=== PATIENT | female | born 1985 | race Caucasian/White ===

== ENCOUNTER → 2018-05-04 18:04 | Observation (INO) ==
[2018-05-04 17:14] LABS: Bilirubin,Urine Negative (Negative); Blood,Urine Negative (Negative); Clarity,Urine Clear (Clear); Color,Urine Yellow (Yellow); Glucose,Urine (UA) Normal (Normal); Ketones,Urine Negative (Negative); Leukocyte Esterase,Urine Trace (Negative); Nitrite,Urine Negative (Negative); PH,Urine 7.5 pH Units (5.0-8.0); Protein,Urine Negative (Neg-Trace); Specific Gravity,Urine 1.017 (1.010-1.025); Urobilinogen,Urine Normal (Normal)
[2018-05-04 17:17] LABS: Bacteria,Urine Few per hpf (None-Few); Hyaline Casts,Urine None Seen per lpf (None-Few); RBC,Urine 0-3 per hpf (0-3); Squamous Epithelial Cell,Urine Many per lpf (None-Few)
[2018-05-04 17:22] LABS: Amphetamine Screen,Urine Negative ng/mL (Cutoff=1000); Barbiturate Screen,Urine Negative ng/mL (Cutoff=200); Benzodiazepines Screen,Urine Negative ng/mL (Cutoff=200); Cannabinoid Screen,Urine Positive ng/mL (Cutoff = 50); Cocaine Screen,Urine Negative ng/mL (Cutoff= 300); Opiate Screen,Urine Negative ng/mL (Cutoff=300); Phencyclidine Screen,Urine Negative ng/mL (Cutoff=25)
[2018-05-04 17:44] LABS: Candida DNA Not Detected (Not Detect); Gardnerella DNA Not Detected (Not Detect); Trichomonas DNA Not Detected (Not Detect)
--- NOTE | 2018-05-04 17:54 | Discharge Summary ---
Date of Encounter: 05/04/18 Time of Encounter: 17:53 - Discharge Diagnosis (1) 37 weeks gestation of Priority: Primary Status: Acute Comments: Follow-up with Dr. Kent on Friday as scheduled Labor parameters discussed Discharge home (2) Vaginal discharge during in third trimester Priority: Secondary Status: Acute Comments: Vaginosis panel negative Urinalysis negative - Discharge Medications Home Medications: Prenata Chewable Tablet 1 tab PO DAILY 05/04/18 [History] Allergies/Adverse Reactions: Allergy/AdvReac Type Severity Reaction Status Date / Time Sulfa (Sulfonamide Allergy Mild Rash Verified 02/20/15 08:43 Antibiotics) Data Procedures and tests throughout hospitalization: Laboratory Tests 05/04/18 05/04/18 05/04/18 16:32 16:45 16:45 Urine Color Yellow Urine Clarity Clear Urine pH 7.5 Ur Specific [place] 1.017 Urine Protein Negative Urine Glucose (UA) Normal Urine Ketones Negative Urine Blood Negative Urine Nitrite Negative Urine Bilirubin Negative Urine Urobilinogen Normal Ur Leukocyte Esterase Trace H Urine Microscopic RBC 0-3 Urine Microscopic WBC 3-5 H Ur Squamous Epith Cells Many H Urine Bacteria Few Hyaline Casts None Seen Ur Culture Indicated? NO. A Urine Opiates Screen Negative Ur Barbiturates Screen Negative Ur Phencyclidine Scrn Negative Ur Amphetamines Screen Negative U Benzodiazepines Scrn Negative Urine Cocaine Screen Negative U Marijuana (THC) Screen Positive H Ur Drug Screen Interp See Below Kayla species DNA Not Detected Gardnerella DNA Probe Not Detected Trichomonas DNA Probe Not Detected Labs on day of discharge: Labs from last 24 hours 05/04/18 05/04/18 05/04/18 16:45 16:45 16:32 Urine Color Yellow Urine Clarity Clear Urine pH 7.5 Ur Specific [place] 1.017 Urine Protein Negative Urine Glucose (UA) Normal Urine Ketones Negative Urine Blood Negative Urine Nitrite Negative Urine Bilirubin Negative Urine Urobilinogen Normal Ur Leukocyte Esterase Trace H Urine Microscopic RBC 0-3 Urine Microscopic WBC 3-5 H Ur Squamous Epith Cells Many H Urine Bacteria Few Hyaline Casts None Seen Ur Culture Indicated? NO. A Urine Opiates Screen Negative Ur Barbiturates Screen Negative Ur Phencyclidine Scrn Negative Ur Amphetamines Screen Negative U Benzodiazepines Scrn Negative Urine Cocaine Screen Negative U Marijuana (THC) Screen Positive H Ur Drug Screen Interp See Below Kayla species DNA Not Detected Gardnerella DNA Probe Not Detected Trichomonas DNA Probe Not Detected Date of admission: 05/04/18 15:50 Primary care physician: Kylie Berkowitz CNP Discharging clinician: Karly Baugh Anticipated date of discharge: 05/04/18 - Patient Status Disposition: Home, Self-Care Condition: Good Functional capacity at discharge: independent ambulation Overall status at discharge: patient is progressing back to baseline - Discharge Instructions Follow Up With: Kylie Berkowitz CNP [Primary Care Provider] - Renetta Kent DO [Partnered Physician] - - Diet and Activity Activity: increase activity as tolerated Diet: regular diet Hospital Course [facility] Reason for admission: other Discharge diagnosis: other Hospital course: presents with a 2 day history of vaginal discharge and slight cramping. She endorses good movement and denies vaginal bleeding and contractions. Vaginosis panel negative. Urinalysis negative. Follow-up with Dr. Kent as scheduled and discharge home. Time Attestation: Total time spent providing and/or coordinating discharge services: Time Spent: Less than 30 minutes Exam - Constitutional General appearance IM: A&O X 3 - Respiratory Respiratory exam: Present: CTAB - Cardiovascular Cardiovascular exam IM: Present: RRR, +S1, +S2 - GI/Abdominal GI/Abdominal exam IM: normal bowel sounds, no peritoneal signs - Rectal Rectal exam: deferred - Uterine Tone: Firm - Extremities Exam Extremities exam IM: Present: normal capillary refill, normal inspection, radial pulses palpable and symmetrical - Neurological Exam Neurological exam: alert, CN II-XII intact, motor sensory deficit, normal gait, oriented X3, reflexes normal, no focal deficits, strengths equal and symetr throughout - VTE Reasons for not Prescribing Prophylaxis: Treatment not Indicated - Low risk for VTE
== END | disposition home or self-care (01) ==
LOC: 1NENULAB
PROVIDERS: ADMIT Advanced Practice Midwife; ATTEND Advanced Practice Midwife

== ENCOUNTER 2018-05-07 05:51 | Inpatient (IN) ==
[~2018-05-07 05:51] MED LIST: Famotidine 20 MG/2 ML VIAL IVP PRN; Lidocaine 1% 20 ML MDV INFILT PRN; Metoclopramide 10 MG/2 ML VIAL IVP PRN; Ringers Solution, Lactated 1,000 ML IVC SCH; Ringers Solution, Lactated 1,000 ML ONE
[2018-05-07 05:56] LABS: Basophils # 0.1 K/mcL (0.0-0.2); Basophils % 0.5 %; Eosinophils # 0.1 K/mcL (0.0-0.6); Eosinophils % 0.5 %; Hematocrit 34.7 % (35.3-44.9); Hemoglobin 11.6 g/dL (11.5-15.4); Lymphocytes # 2.2 K/mcL (0.6-4.6); Mean Corpuscular HGB Conc 33.4 g/dL (31.6-35.5); Mean Corpuscular Hemoglobin 30.6 pg (28.0-33.3); Mean Corpuscular Volume 91.6 fL (83.0-100.0); Mean Platelet Volume 10.3 fL (9.4-12.4); Monocytes # 0.7 K/mcL (0.0-1.3); Monocytes % 5.5 %; Neutrophils # 9.2 K/mcL (1.6-8.9); Platelet Count 255 K/mcL (140-400); Red Blood Count 3.79 M/mcL (3.82-4.97); Red Cell Distribution Width 12.5 % (11.5-14.5); Segmented Neutrophils % 74.5 %
[2018-05-07] MEDS ORDERED: Bupivacaine-MPF 0.25% 10 ML VIAL ONE (06:03)
--- NOTE | 2018-05-07 06:03 | OB/GYN History & Physical ---
Date of Encounter: 05/07/18 Time of Encounter: 05:54 History of Present Illness Chief complaint: Labor evaluation at 38 weeks. HPI: Ms. Kamara is a 32 year old female 013 38 weeks 2 days gestation. She is a patient of Dr. Kent. She arrives complaining of contractions that started 5:30 yesterday evening. She reports decreased movement today, denies leakage of fluid, and states she has lost her mucous plug. Per nurse exam patient is 7 cm on arrival to labor and delivery. Patient requests an epidural for pain management. Blood type O- GBS negative T Pall negative Rubella immune Varicella immune HBsAg not drawn was labs. Will draw this today with admission labs. Past Med Surg Social Fam HX - Past Medical History Medical history: other (graves) Additional medical history: VAG DELIVERY: 2006, 2010, POSSIBLE DWARFISM WITH THIS -STATES TO BE TESTED AFTER DELIVERY. STATES THAT LIMBS ARE VERY SMALL AND THAT IS WHY DWARFISM IS SUSPECTED. Psychiatric history: no psych history - Past Surgical History Surgical History: no surgical history - Social History Smoking Status: Current every day smoker Smokeless Tobacco Status: No Alcohol use: none Drug use: none - Family History Mother Adopted: No Family Member Ethnicity: Non- Living Status: Still Living Hx Family Cardiac Disorders: No Hx Family Respiratory Disorders: No Hx Family Cancer: No Hx Family Endocrine Disorder: No Hx Family Neuromuscular Disorders: No Hx Family Neurologic Disorders: No Hx Family HEENT Disorders: No Hx Family Autoimmune Disorders: No Obstetrical History - Pregnancies : 5 Para: 3 Term: 3 : 0 Ab's: 1 Livin Medications and Allergies Prenata Chewable Tablet 1 tab PO DAILY 05/04/18 [History] Allergy/AdvReac Type Severity Reaction Status Date / Time Sulfa (Sulfonamide Allergy Mild Rash Verified 02/20/15 08:43 Antibiotics) Exam - Constitutional Constitutional: well developed, moderate distress Results All other labs normal. - VTE Reasons for not Prescribing Prophylaxis: Treatment not Indicated - Low risk for VTE
[2018-05-07] MEDS ORDERED: Lidocaine -MPF 2% 5 ML VIAL ONE (06:05)
--- NOTE | 2018-05-07 06:49 | OB/GYN Procedure Note ---
Delivery - Delivery Date: 05/07/18 Provider: Mihaela Guidry (Pavithra Ortega CN) Intrapartum events: precipitous labor- <3hr Delivery induction: none Delivery monitor: external FHT Anesthesia: local Quantitated Blood Loss: 100 - (s) Infant A Infant Delivery Date: 05/07/18 Infant Delivery Time: 06:20 Presentation: vertex Position: OP Route of delivery: vacuum extraction Gender: Male Viability: Viable Pounds: 6 Ounces: 10 Weight Gram: 3 kg at 1 minute: 8 at 5 mins: 10 Shoulder Dystocia: not encountered Specimens collected: cord blood Placenta: spontaneous Cord: nuchal cord, 3 umbilical vessels, delivered through nuchal - Repair Episiotomy: none Laceration Description: Perineal - 2nd Degree - Complications Delivery complications: none Delivery comments: The patient was complete and pushing with bradycardia into the 60s with poor maternal effort. The patient was offered a vacuum delivery. The Kiwi vacuum placed on the vertex at +3 position. With one contraction and aggressive pushing at 450 mmHg and no pop offs there was a successful vaginal delivery in OP position of a vigorous male infant weighing 6 lbs. 10 oz. with Apgars of 8 at 1 minute and 10 at 5 minutes. The cord was clamped and cut after delay and handed to the nursery care team. Placenta was delivered spontaneous and intact. No cervical or vaginal lacerations noted. Second-degree perineal laceration was repaired with 3-0 Monocryl in the usual fashion using 10 mL of 1% lidocaine with epinephrine. Estimated blood loss 100 mL's. Complications none - Disposition Mom disposition: stable in LDR [place] disposition: stable in LDR
[2018-05-07 06:57] LABS: Amphetamine Screen,Urine Negative ng/mL (Cutoff=1000); Barbiturate Screen,Urine Negative ng/mL (Cutoff=200)
[2018-05-07 06:58] LABS: Benzodiazepines Screen,Urine Negative ng/mL (Cutoff=300); Cannabinoid Screen,Urine Positive ng/mL (Cutoff = 50); Cocaine Screen,Urine Negative ng/mL (Cutoff= 300); Opiate Screen,Urine Negative ng/mL (Cutoff=300); Phencyclidine Screen,Urine Negative ng/mL (Cutoff=25)
[2018-05-07] MEDS ORDERED: Acetaminophen 325 MG TABLET PO PRN (07:45)
[2018-05-07] MEDS ORDERED: Oxytocin 20 units/ LR 1000 mL 20 UNIT/1,000 ML BAG IVC SCH (07:45)
[2018-05-07] MEDS ORDERED: Lidocaine/EPI 1:100k 1% 30 ML VIAL INFILT ONE ×2 (07:45→12:47)
[2018-05-07] MEDS ORDERED: Benzocaine/Menthol 56 GM AEROSOL SPRAY TP PRN (07:45)
[2018-05-07] MEDS ORDERED: Rho Immune Globulin 1,500 UNIT SYRINGE IM PRN (07:45)
[2018-05-07] MEDS: Ibuprofen 600 MG TABLET PO SCH ×3 (08:05→21:36)
[2018-05-07] MEDS ORDERED: Prenatal Vit/FA 1 EACH TABLET PO SCH (09:00)
[2018-05-07] MEDS ORDERED: Methylergonovine 0.2 MG/ML AMPUL IM ONE ×2 (11:27)
[2018-05-07] MEDS ORDERED: Ringers Solution, Lactated 1,000 ML ONE ×2 (12:52→16:54)
--- NOTE | 2018-05-07 12:56 | Event Note ---
Date of Encounter: 05/07/18 Time of Encounter: 12:52 Called to patient room by nursing staff to assess large amount of vaginal bleeding at roughly 6 hours . Upon entering room, patient has significant amount of bleeding on chux and pad (roughly 450 mL) with continuous flow of bleeding. Methergine was given within the past 45 minutes for previous gushing without resolve. Patient c/o uterine cramping. Fundus firm at at U. Upon speculum exam, right vaginal wall hemotoma noted with active bleeding from repair site from this morning's delivery. Pressure placed on vaginal wall and Dr Wheatley called to room. Dr Wheatley assumed care at this point.
[2018-05-07 13:00] LABS: Basophils # 0.1 K/mcL (0.0-0.2); Basophils % 0.3 %; Hemoglobin 10.7 g/dL (11.5-15.4); Immature Granulocytes % 1.1 % (0-4); Lymphocytes # 1.8 K/mcL (0.6-4.6); Lymphocytes % 12.3 %; Mean Corpuscular HGB Conc 33.4 g/dL (31.6-35.5); Mean Corpuscular Hemoglobin 30.2 pg (28.0-33.3); Mean Corpuscular Volume 90.4 fL (83.0-100.0); Mean Platelet Volume 10.3 fL (9.4-12.4); Monocytes # 0.6 K/mcL (0.0-1.3); Monocytes % 3.9 %; Neutrophils # 12.2 K/mcL (1.6-8.9); Platelet Count 269 K/mcL (140-400); Red Blood Count 3.54 M/mcL (3.82-4.97); Red Cell Distribution Width 12.3 % (11.5-14.5); Segmented Neutrophils % 82.4 %
[2018-05-07 13:09] LABS: INR 0.9; Prothrombin Time 10.6 Seconds (9.4-12.1)
[2018-05-07 13:12] LABS: Activated Partial Thrombo Time 28.8 Seconds (26.0-36.0)
[2018-05-07] MEDS ORDERED: *HR* HYDROcodone/Acet 5/325 mg TABLET PO PRN (16:18)
--- NOTE | 2018-05-07 16:49 | Event Note ---
Date of Encounter: 05/07/18 Time of Encounter: 16:12 I was called in to the room to evaluate the patient's bleeding. I observed that she had bled about 800c on the paddings and the bed. This was bleeding mixed with clots. I examined her vagina and noted a large right vaginal hematoma. It was bleeding significantly. I evacuated the clots in the vagina and noted a deep vaginal sulcus laceration. I packed her vagina with vag packing, rosa labs- CBC, coags. Fluids started and I prepared her for the OR to surgically repair the laceration. I placed the patient in stirrups and with multiple 3-0 vicryl sutures, I repaired the laceration. I placed Carmen on the surgical bed and packed her vagina. I will place her on antibiotics (Zosyn) and remove the packing in the AM.
[2018-05-07] MEDS: Piperacillin/Tazobactam 3.375 GM in 0.9 % Sodium Chloride Mini Bag 100 ML IVPB SCH (17:07)
[2018-05-07 18:15] LABS: Basophils % 0.2 %; Eosinophils % 0.1 %; Hematocrit 25.2 % (35.3-44.9); Hemoglobin 8.5 g/dL (11.5-15.4); Immature Granulocytes % 0.9 % (0-4); Lymphocytes # 2.2 K/mcL (0.6-4.6); Lymphocytes % 16.8 %; Mean Corpuscular HGB Conc 33.7 g/dL (31.6-35.5); Mean Corpuscular Hemoglobin 30.8 pg (28.0-33.3); Mean Corpuscular Volume 91.3 fL (83.0-100.0); Mean Platelet Volume 10.5 fL (9.4-12.4); Monocytes # 0.6 K/mcL (0.0-1.3); Monocytes % 4.7 %; Neutrophils # 9.9 K/mcL (1.6-8.9); Platelet Count 221 K/mcL (140-400); Red Blood Count 2.76 M/mcL (3.82-4.97); Red Cell Distribution Width 12.4 % (11.5-14.5); Segmented Neutrophils % 77.3 %
[2018-05-08] MEDS: Piperacillin/Tazobactam 3.375 GM in 0.9 % Sodium Chloride Mini Bag 100 ML IVPB SCH ×2 (04:17→11:27)
[2018-05-08] MEDS: Ibuprofen 600 MG TABLET PO SCH ×2 (04:17→11:02)
[2018-05-08 05:48] LABS: Basophils # 0.1 K/mcL (0.0-0.2); Basophils % 0.5 %; Eosinophils # 0.1 K/mcL (0.0-0.6); Eosinophils % 0.5 %; Hematocrit 22.3 % (35.3-44.9); Hemoglobin 7.5 g/dL (11.5-15.4); Immature Platelets 4.4 % (1.1-6.1); Lymphocytes # 2.6 K/mcL (0.6-4.6); Lymphocytes % 23.9 %; Mean Corpuscular HGB Conc 33.6 g/dL (31.6-35.5); Mean Corpuscular Hemoglobin 30.7 pg (28.0-33.3); Mean Corpuscular Volume 91.4 fL (83.0-100.0); Mean Platelet Volume 10.8 fL (9.4-12.4); Monocytes # 0.6 K/mcL (0.0-1.3); Monocytes % 5.7 %; Neutrophils # 7.5 K/mcL (1.6-8.9); Platelet Count 194 K/mcL (140-400); Red Blood Count 2.44 M/mcL (3.82-4.97); Red Cell Distribution Width 12.7 % (11.5-14.5); Segmented Neutrophils % 68.4 %
--- NOTE | 2018-05-08 08:10 | OB/GYN Progress Note ---
Date of Encounter: 05/08/18 Time of Encounter: 08:08 - Assessment and Plan (1) Status post vaginal delivery Current Visit: Yes Status: Acute (2) hemorrhage Current Visit: Yes Status: Acute Qualifiers: hemorrhage type: secondary hemorrhage Qualified Code(s): O72.2 - Delayed and secondary hemorrhage (3) Vaginal vault hematoma Current Visit: Yes Status: Acute (4) Blood loss anemia Current Visit: Yes Status: Acute We will repeat CBC and approximate 6 hours from last one in stable and asymptomatic we will discuss possible discharge Subjective - Subjective Interval history: Patient's doing well this morning just very sore. She denies any lightheadedness dizziness when up and ambulating. She has not been up much because of the discomfort. Patient states that she has been having some bleeding but it is been light but she does have packing inside the vagina at this time. Hemoglobin is down to 7.4 did recommend repeating it in approximately 6 hours to make sure it stable. Patient is asymptomatic not lightheaded dizzy hemoglobin is stable later today and is wanting to go home did discuss possible discharge. Patient reports: appetite normal, voiding normally, pain well controlled, ambulating normally : doing well Objective - Latest Vital Signs Latest vital signs: Vital Signs Temp Pulse Resp BP Pulse Ox 05/08/18 04:10 97.9 F 83 14 97/58 99 05/07/18 20:10 98.0 F 75 14 104/66 98 05/07/18 17:10 97.7 F 96 16 97/64 96 05/07/18 17:06 97.7 F 96 14 97/64 96 05/07/18 15:45 98.3 F 89 16 114/73 100 05/07/18 15:20 97.7 F 84 16 103/78 100 05/07/18 14:52 97.7 F 69 16 112/79 99 05/07/18 14:16 97.6 F 73 16 116/94 98 05/07/18 13:53 97.7 F 88 16 116/94 98 05/07/18 13:42 80 16 120/62 98 05/07/18 13:35 96 16 110/65 97 05/07/18 13:20 93 20 119/68 97 05/07/18 13:08 79 16 122/72 97 05/07/18 13:03 87 18 112/74 97 05/07/18 12:59 128 18 114/77 98 05/07/18 12:55 104/62 05/07/18 11:20 98 F 60 16 117/87 98 05/07/18 11:15 98 F 60 12 117/87 98 05/07/18 10:15 97.7 F 78 16 114/71 100 05/07/18 09:15 98.5 F 79 12 115/61 98 Intake and Output 05/07/18 05/08/18 05/08/18 23:59 07:59 15:59 Intake Total 400 / 400 500 / 500 Output Total 300 / 300 400 / 400 Balance 100 / 100 100 / 100 Intake: IV Fluids 100 / 100 Zosyn 3.375 GM In 0.9 % Sodium 100 / 100 Chloride (Mini-Bag +) 100 ML @ 25 mls/hr IVPB Q8H [facility] Rx#: [id number] Oral 300 / 300 500 / 500 Output: Urine 300 / 300 400 / 400 Other: # Voids 1 Weight 67.585 kg Patient Weight 05/08/18 23:59 Weight 67.585 kg - Exam Chest: Normal S1, Normal S2 Extremities: Present: normal Abdomen: Present: normal appearance Uterus Position: 1 Finger Below Umbilicus Comments: One lap sponge removed from vagina bloodsoaked but no active bleeding noted after the removal noted after the removal. - Labs Labs: Laboratory Results - last 24 hr 05/07/18 05/07/18 05/07/18 07:03 12:40 12:40 WBC 14.9 H RBC 3.54 L Hgb 10.7 L Hct 32.0 L MCV 90.4 MCH 30.2 MCHC 33.4 RDW 12.3 Plt Count 269 MPV 10.3 Immature Gran % 1.1 Seg Neutrophils % 82.4 Lymphocytes % 12.3 Monocytes % 3.9 Eosinophils % 0.0 Basophils % 0.3 Neutrophils # 12.2 H Lymphocytes # 1.8 Monocytes # 0.6 Eosinophils # 0.0 Basophils # 0.1 Immature Plt Fraction PT 10.6 INR 0.9 APTT 28.8 Fibrinogen 455 H Screen NEGATIVE Baby's Blood Type O RH POSITIVE Mother's Blood Type O RH NEGATIVE Rhogam Indicated YES Rhogam Req for Mother 1 05/07/18 05/08/18 17:49 05:03 WBC 12.8 H 10.9 RBC 2.76 L 2.44 L Hgb 8.5 L D 7.5 L Hct 25.2 L 22.3 L MCV 91.3 91.4 MCH 30.8 30.7 MCHC 33.7 33.6 RDW 12.4 12.7 Plt Count 221 194 MPV 10.5 10.8 Immature Gran % 0.9 1.0 Seg Neutrophils % 77.3 68.4 Lymphocytes % 16.8 23.9 Monocytes % 4.7 5.7 Eosinophils % 0.1 0.5 Basophils % 0.2 0.5 Neutrophils # 9.9 H 7.5 Lymphocytes # 2.2 2.6 Monocytes # 0.6 0.6 Eosinophils # 0.0 0.1 Basophils # 0.0 0.1 Immature Plt Fraction 4.4 PT INR APTT Fibrinogen Screen Baby's Blood Type Mother's Blood Type Rhogam Indicated Rhogam Req for Mother
[2018-05-08 08:28] VITALS: BP 106/63
[2018-05-08 13:10] LABS: Hematocrit 21.7 % (35.3-44.9); Hemoglobin 7.2 g/dL (11.5-15.4)
--- NOTE | 2018-05-08 16:51 | Discharge Summary ---
Date of Encounter: 05/08/18 Time of Encounter: 16:49 - Discharge Diagnosis (1) Status post vaginal delivery Priority: Primary Status: Acute (2) hemorrhage Priority: Primary Status: Acute Qualifiers: hemorrhage type: secondary hemorrhage Qualified Code(s): O72.2 - Delayed and secondary hemorrhage (3) Vaginal vault hematoma Priority: Primary Status: Acute (4) Blood loss anemia Priority: Primary Status: Acute - Discharge Medications Prescriptions: HYDROcodone/Acet 5/325 mg [[place] 5-325 mg] 1 tab PO Q6HR PRN 7 Days #28 tablet PRN Reason: Pain Ferrous Sulfate 325 mg PO BID #60 tablet Home Medications: Ferrous Sulfate 325 mg PO BID #60 tablet 05/08/18 [Rx] HYDROcodone/Acet 5/325 mg [[place] 5-325 mg] 1 tab PO Q6H PRN 7 Days #28 tab 05/08/18 [Rx] Allergies/Adverse Reactions: Allergy/AdvReac Type Severity Reaction Status Date / Time Sulfa (Sulfonamide Allergy Mild Rash Verified 02/20/15 08:43 Antibiotics) Data Procedures and tests throughout hospitalization: Laboratory Tests 05/07/18 05/07/18 05/07/18 05:43 06:08 06:42 WBC 12.3 H RBC 3.79 L Hgb 11.6 Hct 34.7 L MCV 91.6 MCH 30.6 MCHC 33.4 RDW 12.5 Plt Count 255 MPV 10.3 Immature Gran % 1.0 Seg Neutrophils % 74.5 Lymphocytes % 18.0 Monocytes % 5.5 Eosinophils % 0.5 Basophils % 0.5 Neutrophils # 9.2 H Lymphocytes # 2.2 Monocytes # 0.7 Eosinophils # 0.1 Basophils # 0.1 Immature Plt Fraction PT INR APTT Fibrinogen Urine Opiates Screen Negative Ur Barbiturates Screen Negative Ur Phencyclidine Scrn Negative Ur Amphetamines Screen Negative U Benzodiazepines Scrn Negative Urine Cocaine Screen Negative U Marijuana (THC) Screen Positive H Ur Drug Screen Interp See Below Hep Bs Antigen Nonreactive Screen Baby's Blood Type Mother's Blood Type Rhogam Indicated Rhogam Req for Mother 05/07/18 05/07/18 05/07/18 07:03 12:40 12:40 WBC 14.9 H RBC 3.54 L Hgb 10.7 L Hct 32.0 L MCV 90.4 MCH 30.2 MCHC 33.4 RDW 12.3 Plt Count 269 MPV 10.3 Immature Gran % 1.1 Seg Neutrophils % 82.4 Lymphocytes % 12.3 Monocytes % 3.9 Eosinophils % 0.0 Basophils % 0.3 Neutrophils # 12.2 H Lymphocytes # 1.8 Monocytes # 0.6 Eosinophils # 0.0 Basophils # 0.1 Immature Plt Fraction PT 10.6 INR 0.9 APTT 28.8 Fibrinogen 455 H Urine Opiates Screen Ur Barbiturates Screen Ur Phencyclidine Scrn Ur Amphetamines Screen U Benzodiazepines Scrn Urine Cocaine Screen U Marijuana (THC) Screen Ur Drug Screen Interp Hep Bs Antigen Screen NEGATIVE Baby's Blood Type O RH POSITIVE Mother's Blood Type O RH NEGATIVE Rhogam Indicated YES Rhogam Req for Mother 1 05/07/18 05/08/18 05/08/18 17:49 05:03 12:56 WBC 12.8 H 10.9 RBC 2.76 L 2.44 L Hgb 8.5 L D 7.5 L 7.2 L Hct 25.2 L 22.3 L 21.7 L MCV 91.3 91.4 MCH 30.8 30.7 MCHC 33.7 33.6 RDW 12.4 12.7 Plt Count 221 194 MPV 10.5 10.8 Immature Gran % 0.9 1.0 Seg Neutrophils % 77.3 68.4 Lymphocytes % 16.8 23.9 Monocytes % 4.7 5.7 Eosinophils % 0.1 0.5 Basophils % 0.2 0.5 Neutrophils # 9.9 H 7.5 Lymphocytes # 2.2 2.6 Monocytes # 0.6 0.6 Eosinophils # 0.0 0.1 Basophils # 0.0 0.1 Immature Plt Fraction 4.4 PT INR APTT Fibrinogen Urine Opiates Screen Ur Barbiturates Screen Ur Phencyclidine Scrn Ur Amphetamines Screen U Benzodiazepines Scrn Urine Cocaine Screen U Marijuana (THC) Screen Ur Drug Screen Interp Hep Bs Antigen Screen Baby's Blood Type Mother's Blood Type Rhogam Indicated Rhogam Req for Mother Labs on day of discharge: Labs from last 24 hours 05/08/18 05/08/18 05/07/18 12:56 05:03 17:49 WBC 10.9 12.8 H RBC 2.44 L 2.76 L Hgb 7.2 L 7.5 L 8.5 L D Hct 21.7 L 22.3 L 25.2 L MCV 91.4 91.3 MCH 30.7 30.8 MCHC 33.6 33.7 RDW 12.7 12.4 Plt Count 194 221 MPV 10.8 10.5 Immature Gran % 1.0 0.9 Seg Neutrophils % 68.4 77.3 Lymphocytes % 23.9 16.8 Monocytes % 5.7 4.7 Eosinophils % 0.5 0.1 Basophils % 0.5 0.2 Neutrophils # 7.5 9.9 H Lymphocytes # 2.6 2.2 Monocytes # 0.6 0.6 Eosinophils # 0.1 0.0 Basophils # 0.1 0.0 Immature Plt Fraction 4.4 Date of admission: 05/07/18 05:51 Primary care physician: PCP NONE Consults: 05/07/18 07:45 Consult to [employer]or [CONS] Routine Comment: Vaginal delivery, consult needed Consult to Assistant Quality Manager [CONS] Routine Reason for SW Consult: Precipitous delivery Discharging clinician: Camilo Baez Anticipated date of discharge: 05/08/18 - Patient Status Disposition: Home, Self-Care Condition: Fair Functional capacity at discharge: independent ambulation Overall status at discharge: patient is progressing back to baseline - Discharge Instructions Follow Up With: NONE,PCP [Primary Care Provider] - Mihaela Guidry MD [Partnered Physician] - - Diet and Activity Activity: increase activity as tolerated Diet: advance to your usual diet Hospital Course Procedures: Spontaneous vaginal delivery, repair of vaginal wall hematoma Reason for admission: active labor Delivery: vacuum extraction Episiotomy: none Laceration: vaginal side wall, 2nd degree Other procedures: other (repair vag wall hematoma) complications: hematoma Discharge diagnosis: IUP at term delivered, other (blood loss anemia) Hospital course: Patient is a 32-year-old female who presented in active labor. Patient progressed rapidly however got to complete tones dropped into the 60s and required a vacuum extraction to help with the baby out. Patient had a second- degree laceration and a the time of delivery had no other complications. Patient later in the day started having heavy vaginal bleeding provide is called was assessed and was noted to have what appeared to be a large hematoma coming off the vaginal sidewall. Patient was taken the operating room where she was noted to have an active bleed going on in a deep sulcus tear. This was repaired the vagina was then packed and she was taken back to her room. Patient remained asymptomatic even though her hemoglobin dropped down to 7.4. This morning the packing was removed patient was still asymptomatic was not having any heavy bleeding repeat hemoglobin was 7.2. Patient was wanting to be discharged home she will be discharged home on iron sulfate 325 mg twice a day and Vicodin 5 mg #28 1 every 6 as needed for pain she will follow up in the office in 2-4 weeks. Patient's condition at the time of discharge was stable. Time Attestation: Total time spent providing and/or coordinating discharge services: Exam - Constitutional Vitals: Temp Pulse Resp BP Pulse Ox 97.6 F 65 16 106/63 99 05/08/18 08:27 05/08/18 08:27 05/08/18 08:27 05/08/18 08:27 05/08/18 04:10 General appearance IM: A&O X 3 - Respiratory Respiratory exam: Present: CTAB - Cardiovascular Cardiovascular exam IM: Present: RRR - GI/Abdominal GI/Abdominal exam IM: normal bowel sounds - Uterine Tone: Firm Uterus Position: 1 Finger Below Umbilicus
== END 2018-05-08 18:30 | disposition home or self-care (01) | DRG 560 ==
LOC: 1NENULAB → 1NENUOBS 09:03
PROVIDERS: ADMIT Registered Nurse; ATTEND Registered Nurse